=== PATIENT | female | born 1960 | race Caucasian/White ===

== ENCOUNTER 2018-06-30 08:16 | Outpatient (CLI) | payer BC ==
[2018-06-30] MEDS ORDERED: ISOVUE-370 76%-LOCM 1 ML ONE (12:02)
--- NOTE | 2018-07-03 07:28 | CT ---
CT ABDOMEN WITH CONTRAST: CT PELVIS WITH CONTRAST: HISTORY: Nausea and vomiting. Previous obstruction. The patient states that she had a mesh put in. The ramona ent now feels like the mesh has moved. COMPARISON: 12/01/2014, 12/29/2014. TECHNIQUE: An abdomen and pelvis CT is performed with IV and oral contrast. Coronal reformatted images are subm itted for interpretation. FINDINGS: ABDOMEN: Calcified granuloma in the lingula. Dependent atelectatic changes are noted. Heart size i s normal. No significant pericardial fluid. The descending thoracic aorta and abdominal aorta demon strate atherosclerosis. No periaortic fat stranding. The portal vein is patent. The liver, spleen, pancreas, and adrenal glands have appropriate enhancement. No gastrohepatic, retrocrural, or periportal lymphadenopathy. No mesenteric mass, lymphadenopathy, free air, or free fluid. The gallbladder is presumed to be surgically absent. Symmetric enhancement of the kidneys. No obstructive uropathy. The gastric mucosa, duodenum, and multiple normal caliber small bowel loops are identified. The ileo cecal junction is normal. Normal caliber appendix. Scattered fecal material in a nondistended, nond ilated colon. No definite mucosal abnormality. PELVIS: No mass, lymphadenopathy, free air, or free fluid. The uterus and adnexal structures are un remarkable. No lytic or blastic lesions in the osseous structures. IMPRESSION: No acute abnormality in the abdomen or pelvis. POS: [facility]
== END 2018-06-30 08:17 | disposition home or self-care (01) ==
LOC: BICCT 08:16
PROVIDERS: ATTEND Internal Medicine Gastroenterology
DX: R10.9 Unspecified abdominal pain (principal); R11.0 Nausea; R11.2 Nausea with vomiting, unspecified
CPT/HCPCS: 74177

== ENCOUNTER 2018-08-14 10:33 | Day surgery (SDC) | payer BC ==
[2018-08-11 12:01] VITALS: BMI 19.7
[2018-08-14] MEDS ORDERED: Bupivacaine/Epinephrine 0.25% 30 ML VIAL ONE (10:59)
[2018-08-14] MEDS ORDERED: CEFAZOLIN 2 GM/50 ML BAG ONE (11:05)
[2018-08-14 11:13] LABS: #Basophils 0.1 thou/uL (0.0-0.2); #Eosinphils 0.1 thou/uL (0.0-0.7); #Lymphocytes 2.4 thou/uL (1.20-3.40); #Monocytes 1.1 thou/uL (0.11-0.59); #Neutrophils 8.2 thou/uL (1.40-6.50); %Basophils 0.5 % (0.0-1.0); %Eosinophils 1.1 % (0.0-10.0); %Lymphocytes 20.1 % (21.0-51.0); %Monocytes 9.5 % (0.0-10.0); %Neutrophils 68.8 % (42.0-75.0); Hemoglobin 12.1 g/dL (12.0-16.0); Mean Corpuscular HGB CONC 31.9 g/dL (32.0-36.0); Mean Corpuscular Hemoglobin 29.9 pg (27.0-31.0); Mean Corpuscular Volume 93.7 fL (78.0-98.0); Mean Platelet Volume 8.1 fL (7.4-10.4); Platelet Count 412 thou/uL (130-400); RBC Distribution Width 12.7 % (11.5-14.5); Red Blood Cell (RBC) Count 4.05 mill/uL (4.20-5.40); White Blood Cell (WBC) Count 11.9 thou/uL (4.8-10.8)
[2018-08-14 11:36] LABS: ALT (SGPT) 17 U/L (8-55); AST (SGOT) 23 U/L (5-34); Albumin 3.7 g/dL (3.5-5.0); Alkaline Phosphatase 83 U/L (40-150); Anion Gap 10 mmol/L (10-20); BUN (Urea Nitrogen) 7 mg/dL (9.8-20.1); Bilirubin, Total 0.2 mg/dL (0.2-1.2); Calc. Creatinine Clearance 73 mL/min (70-130); Carbon Dioxide 22 mmol/L (22-29); Chloride 112 mmol/L (98-107); Estimated GFR-MDRD 87; Globulin 3.1 g/dL (2.4-3.5); Glucose 92 mg/dL (70-105); Potassium 3.5 mmol/L (3.5-5.1); Protein, Total 6.8 g/dL (6.0-8.3); Sodium 140 mmol/L (136-145)
[2018-08-14] MEDS ORDERED: Midazolam HCl 2 mg/2 ml Vial ONE ×2 (11:56→12:06)
[2018-08-14] MEDS ORDERED: Fentanyl 100 MCG/2 ML VIAL ONE (12:06)
[2018-08-14] MEDS ORDERED: Glycopyrrolate 0.2 MG/ML 5 ML SYRINGE ONE (15:02)
[2018-08-14] MEDS ORDERED: Ondansetron PF 4 MG/2 ML Vial ONE (15:02)
[2018-08-14] MEDS ORDERED: PROPOFOL 200 MG/20 ML VIAL ONE (15:02)
[2018-08-14] MEDS ORDERED: Lidocaine 1% PF 5 ML VIAL ONE (15:02)
[2018-08-14] MEDS ORDERED: HYDROcodone/Acetaminophen 5/325 mg Tablet ONE (15:25)
--- NOTE | 2018-08-14 16:54 | EKG ---
Test Reason : PREOP Blood Pressure : / mmHG Vent. Rate : 081 BPM Atrial Rate : 081 BPM P-R Int : 140 ms QRS Dur : 098 ms QT Int : 398 ms P-R-T Axes : 068 075 053 degrees QTc Int : 462 ms Normal sinus rhythm Normal ECG When compared with ECG of 26-NOV-2014 11:10, No significant change was found Confirmed by DR. Amos SWIFT ([id number]) on 08/14/2018 4:53:43 PM Referred By: NEMO Confirmed By:DR. Amos SWIFT
--- NOTE | 2018-08-15 16:15 | OP ---
DATE OF PROCEDURE: 08/14/2018 PROCEDURE: Laparoscopic repair of ventral hernias with mesh. PREOPERATIVE DIAGNOSIS: Ventral hernia. POSTOPERATIVE DIAGNOSIS: Ventral hernia. HISTORY: Ms. Weinstein is a 57-year-old woman with an incisional hernia above the umbilicus. She also h as chronic pain in the upper abdomen, but no palpable hernias in that location. Recommendation was m amber to proceed with laparoscopic ventral hernia repair. PROCEDURE IN DETAIL: After informed consent was obtained and appropriate preoperative antibiotics we re administered, the patient was taken to the operating room where she was placed in the supine posit ion and general endotracheal anesthesia was administered. She was prepped and draped in the standard sterile fashion and local anesthesia infused to the skin and subcutaneous tissues overlying the late ral abdomen. A skin incision was made. The dissection was carried down to the external oblique apon eurosis, which was incised in the direction of the muscle fibers. Stay sutures were placed and the u nderlying muscle split. The internal oblique and transversalis were likewise split in the direction of their fibers with stay sutures in each layer. Peritoneum was identified, grasped and an inc ision made. The peritoneal cavity was digitally explored and no adhesions were found in the vicinity . A trocar was placed and carbon dioxide gas insufflated to an intra-abdominal pressure of 15, which the patient tolerated well. A laparoscope was advanced into the abdominal cavity. There was no heather dence of trocar injury and no adhesions in the vicinity, although she had extensive omental adhesions to the midline. Additional local anesthesia was infused to the superior lateral abdomen and to the opposite side and 2 additional trocars were placed. The omental adhesions were taken down through th e avascular plane using electrocautery as necessary. The palpable hernia was identified and the omen lonnie was drawn out of the hernia defect. In addition, there were several other small hernia defects i n the immediate vicinity. In the area of the patient's pain in the upper abdomen, there were no fasc ial defects, but there were extensive adhesions between the liver and the anterior abdominal wall. T hese were carefully taken down through the avascular plane until the upper abdominal wall was cleared of adhesions. The area of the fascial defect was measured and was 5 x 4.5 cm and 11.4 cm circular V entralex mesh was obtained and placed through the large trocar. This was approached with nonadherent side facing the bowel and secured the superior, inferior and lateral edges of the mesh using a trans fascial suture on a GraNee needle. A SecureStrap device was then used to secure the mesh circumferen tially with excellent coverage of all defects. The operative field was examined and no bleeding was seen from the omentum or the liver. The 2 small trocars were removed and hemostasis verified. The l arge trocar was then removed and the used to secure the transversalis, internal oblique and ext ernal oblique muscles with excellent technical result. Additional local anesthesia was infused at al l sites and the skin incisions were closed with 4-0 Monocryl suture. The patient was extubated and t aken to recovery in good condition. Estimated blood loss was minimal. There were no complications. There were no specimens.
== END 2018-08-14 16:10 | disposition home or self-care (01) ==
LOC: SDC 10:33
PROVIDERS: ATTEND Surgery
PROC: 0WUF4JZ Supplement Abdominal Wall with Synthetic Substitute, Percutaneous Endoscopic Approach (ICD-10-PCS; principal; 2018-08-14)
DX: K43.9 Ventral hernia without obstruction or gangrene (principal); I10 Essential (primary) hypertension; E78.00 Pure hypercholesterolemia, unspecified; F32.9 Major depressive disorder, single episode, unspecified; Z79.899 Other long term (current) drug therapy
CPT/HCPCS: 36415; 80053; 85025; 93005; 93010; C1781; J2001; J2250; J2405; J2704; J3010

== ENCOUNTER 2018-09-12 10:56 | Outpatient (CLI) | payer BC ==
--- NOTE | 2018-09-12 13:30 | CT ---
CT ABDOMEN AND PELVIS WITH IV CONTRAST: 09/12/2018 HISTORY: Incisional hernia; rule out bowel obstruction. The patient had an umbilical hernia one month ago wit h nausea and vomiting and associated weight loss. COMPARISON: 09/12/2018 FINDINGS: Calcified granuloma is again present in the lingula. There is a linear area of scarring versus atele ctasis at the right lung base. Vascular calcifications are seen in the abdominal aorta and involving the iliac arteries. There is e vidence of post cholecystectomy changes with mild intrahepatic biliary ductal dilatation, similar to the prior exam. The liver, spleen, pancreas, bilateral adrenal glands, kidneys, and urinary bladder, as well as uteru s, demonstrate a normal CT appearance. Post surgical changes involving the stomach and small bowel, in the upper abdomen, are again seen and are unchanged from prior exam of 06/30/2018. There are prominent proximal loops of small bowel, paris suring up to 3.3 cm, but this loop of bowel is overall stable in appearance when compared to the prio r exam. However, there is a loop of small bowel within the mid abdomen, just to the right of midline , which appears to demonstrate mild wall thickening. There is also focal thickening involving the re gion of the gastric antrum, but this could be related to peristalsis. No free fluid, fluid collection, or lymphadenopathy is seen in the abdomen or pelvis. There is stable grade I anterolisthesis of L4 on L5. No other interval change. IMPRESSION: 1. Short segment of apparent mild wall thickening involving a loop of small bowel, in the mid abdome n, just to the right of midline, which is overall nonspecific; however, enteritis is a possibility. 2. Post surgical changes of the stomach and loop of small bowel in the upper abdomen, stable from pr ior examination. There are mildly dilated loops of proximal small bowel, and the degree of dilatatio n is unchanged compared to 06/30/2018, measuring up to 3.3 cm. Findings could be related to low grad e partial small bowel obstruction or ileus. 3. Focal wall thickening involving the gastric antrum. This could be related to incomplete distenti on. This is difficult to further evaluate on this examination. If warranted, endoscopy could be per formed for further evaluation. 4. The remainder of the CT abdomen and pelvis is overall stable from the prior examination. No abdo angel wall hernia is appreciated. POS: [facility]
[2018-09-12] MEDS ORDERED: Iopamidol 370 76% 50 ML VIAL FS ONE (13:40)
[2018-09-12] MEDS ORDERED: Iopamidol 370 76% 100 ML VIAL ONE (13:40)
== END 2018-09-12 10:57 | disposition home or self-care (01) ==
LOC: CT 10:56
PROVIDERS: ATTEND Surgery
DX: K43.2 Incisional hernia without obstruction or gangrene (principal); Z98.890 Other specified postprocedural states; K31.89 Other diseases of stomach and duodenum
CPT/HCPCS: 74177

== ENCOUNTER 2019-05-07 10:10 | Outpatient (CLI) | payer BC ==
--- NOTE | 2019-05-07 15:39 | RAD ---
BIPHASIC UPPER GI AND SMALL BOWEL FOLLOW-THROUGH: HISTORY: Abnormal weight loss, nausea and vomiting FINDINGS: Swallowing was grossly normal. There is unobstructed flow of contrast through the esophagus into the stomach duodenum and proximal jejunum. No obstructing mass, stricture or diverticulum is seen. The ligament of Treitz is in its expected location. No GE reflux was demonstrated during the Valsalva man euver. There is normal transit of contrast through the loops of small bowel into the colon. No obstructing m ass or stricture is seen. The mucosal pattern is within normal limits. Some of the proximal ileal loops are mildly dilated without stasis of contrast. Spot compression under fluoroscopy reveals no abnormalities. The terminal ileum appears normal. IMPRESSION: 1. Unremarkable upper GI. 2. No evidence of small bowel obstruction.
== END 2019-05-07 10:11 | disposition home or self-care (01) ==
LOC: RAD 10:10
PROVIDERS: ATTEND Physician Assistant Medical
DX: R63.4 Abnormal weight loss (principal); R11.2 Nausea with vomiting, unspecified
CPT/HCPCS: 74249